=== PATIENT | female | born 1975 | race Asian ===

== ENCOUNTER → 2022-10-29 | Outpatient (CLI) | payer BC | LOC: MC.RAD 07:32 | DX: Z12.31 Encounter for screening mammogram for malignant neoplasm of breast (principal); R92.0 Mammographic microcalcification found on diagnostic imaging of breast ==

== ENCOUNTER → 2022-11-01 | Outpatient (CLI) | payer BC | LOC: MC.RAD 12:28 | DX: R92.1 Mammographic calcification found on diagnostic imaging of breast (principal) ==

== ENCOUNTER → 2022-11-06 | Outpatient (CLI) | payer BC | LOC: MC.RAD 06:49 | DX: R92.0 Mammographic microcalcification found on diagnostic imaging of breast (principal) ==